=== PATIENT | male | born 1960 | race Caucasian/White ===

== ENCOUNTER 2017-07-29 12:09 | Inpatient (IN) | payer BC, OTHER ==
[~2017-07-29] VITALS: Ht 188 cm; Wt 79.4 kg
--- NOTE | ~2017-07-29 | EKG ---
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
--- NOTE | ~2017-07-29 | H ---
[facility] [place] [address] HISTORY AND PHYSICAL Name: ACE BLACK Room #: 364-P [facility] IN M.R.#: [id number] Admission: 07/29/17 Attend Phys: Pedro Luis Lopez MD, [facility] Discharge: 07/31/17 Date of : 64 Report #: [id number] THIS REPORT FOR: //name// CC: Pedro Luis Lopez DATE OF SERVICE: 07/29/2017 CHIEF COMPLAINT: Pneumonia. HISTORY OF PRESENT ILLNESS: The patient is a 56-year-old white male well known to me. He has metastatic germ cell tumor and has undergone radiation and chemotherapy for this, currently receiving immunotherapy in [place]. He has had pancytopenia with particularly low platelet count most recently 11 noted in the outpatient labs day before yesterday. He received platelet transfusion yesterday evening at [facility]. Platelet count before that transfusion was 11. Today, he has felt poorly with some chest congestion, malaise, light clamminess, went to the Emergency Department at [facility] and was found to have a right lower lobe pneumonia. He is admitted for IV antibiotic therapy and pulmonary toilet. Cultures are obtained. PAST MEDICAL AND SURGICAL HISTORY: Testicular cancer, unilateral orchiectomy, gout, mild sigmoid diverticulosis, hyperplastic polyp removed and colonoscopy by Dr. 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 MEDICATIONS: Allopurinol 300 mg 1 p.o. daily, midodrine 10 mg 1 p.o. t.i.d., Glidden 10/325 1 p.o. q. 4 hours p.r.n. pain, gabapentin, multivitamin 1 p.o. daily, temazepam 15 mg at bedtime p.r.n. insomnia, Xanax 1 mg 1 p.o. daily p.r.n. anxiety, Compazine 10 mg 1 p.o. q. 8 hours p.r.n. nausea, Zofran 8 mg 1 p.o. q. 8 hours p.r.n. nausea. ALLERGIES: CODEINE caused nausea and vomiting. FAMILY HISTORY: Both parents had their gallbladders out. 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 REVIEW OF SYSTEMS: CONSTITUTIONAL: Has felt poorly lately, weak and now with chest congestion and radiographically confirmed pneumonia. EYES: No visual changes. ENT: No problems with hearing, swallow, taste or smell. [facility] [address] [place] [address] HISTORY AND PHYSICAL Name: ACE BLACK Room #: 364-P DIS IN M.R.#: [id number] Admission: 07/29/17 Attend Phys: Pedro Luis Lopez MD, FAAF Discharge: 07/31/17 Date of : 64 Report #: [id number] CARDIOVASCULAR: No chest pain or palpitations. RESPIRATORY: Chest congestion with pneumonia. GASTROINTESTINAL: No abdominal pain. GENITOURINARY: No problems urinating. MUSCULOSKELETAL: Feels weak. NEUROLOGIC: No paresis, paralysis or paresthesias. PSYCHIATRIC: Frustrated some depression. DERMATOLOGIC: No disturbing lesions or rash. Remainder of system review is negative. OBJECTIVE: VITAL SIGNS: New set of vital signs earlier in the day, temperature is 37.1, pulse 125, respirations 18, blood pressure 85/53, 95% O2 saturation on room air. GENERAL: He is in no acute distress, appears fatigued, engaging in conversation. HEENT: Pupils equal, round, reactive to light and accommodation. Extraocular muscles intact. Pharynx unremarkable. NECK: Supple. COR: S1, S2. CHEST: Moves air fairly well. He has somewhat diminished in the right lower lobe. ABDOMEN: Soft, nontender. EXTREMITIES: Nonedematous. LABORATORY EVALUATION: CBC: White count is 2.3, hemoglobin 8.9, hematocrit 26.1, platelets 26,000. This is following a platelets transfusion yesterday. Serum chemistry: Sodium 135, potassium 4.5, chloride 97, CO2 of 30, BUN 30, creatinine 1.5. Chest x-ray done from Emergency Department shows a right lower lobe infiltrate and small right pleural effusion. ASSESSMENT: Right lower lobe pneumonia, metastatic germ cell tumor, hypotension, pancytopenia. PLAN: Admit to hospital, IV antibiotics, Rocephin, and Zithromax, pulmonary toilet, follow cultures. <ELECTRONICALLY SIGNED> By: Pedro Luis Lopez MD, JOHN, FACEP 08/04/17 1646 2216 [id number] Pedro Luis Lopez MD, JOHN, FACEP /nt
[~2017-07-29 12:09] MED LIST: ALLOPURINOL 10100 M1 PO; FISHOIL PO; HYDROCODON-ACE1 EAC8 PO; RESTORIL30 MG PO; VOLTAREN 50MG T50 MG PO
[2017-07-29 12:14] VITALS: BP 85/53
[2017-07-29] MEDS ORDERED: ALLOPURINOL 10100 M1 PO (12:54)
[2017-07-29 12:55] LABS: ANION GAP 8 mmol/L (7-16); BUN 30 mg/dL (7-18); CALCIUM 8.7 mg/dL (8.5-10.1); CHLORIDE 97 mmol/L (98-107); CO2 30 mmol/L (21-32); CREATININE 1.5 mg/dL (0.7-1.3); GLUCOSE 109 mg/dL (74-106); HEMATOCRIT 26.1 % (42.0-52.0); HEMOGLOBIN 8.9 gm/dL (14.0-18.0); MANUAL DIFF YES; MCH 31.1 pg (26.0-34.0); MCV 91.5 fL (80.0-100.0); POTASSIUM 4.5 mmol/L (3.5-5.1); RBC 2.85 mil/uL (4.50-6.00); RDW 22.5 % (10.5-14.5); SODIUM 135 mmol/L (136-145); WBC 2.3 thou/uL (4.0-11.0)
[2017-07-29] MEDS ORDERED: CENTRUM SILVER1 EAC4 PO (12:55)
[2017-07-29] MEDS ORDERED: IRON325 PO (12:55)
[2017-07-29] MEDS ORDERED: DEXPAK1.5 M1 PO (12:57)
[2017-07-29] MEDS ORDERED: VITAMIN D3400 UNIT PO (12:58)
[2017-07-29] MEDS ORDERED: NEURONTIN 300300 M1 PO (12:58)
[2017-07-29] MEDS ORDERED: COLACE100 MG PO (12:59)
[2017-07-29] MEDS ORDERED: OLANZAPINE2.5 MG PO (12:59)
[2017-07-29] MEDS ORDERED: MIDODRINE HCL 55 M1 PO (12:59)
[2017-07-29] MEDS ORDERED: PROTONIX40 M1 PO (13:00)
[2017-07-29] MEDS ORDERED: FENTANYL PATCH75 MCG TRANSDERM (13:00)
[2017-07-29] MEDS ORDERED: LIDODERM1 EACH TOP (13:01)
[2017-07-29 13:04] LABS: ALBUMIN 2.6 g/dL (3.4-5.0); ALKALINE PHOSPHATASE 781 U/L (46-116); SGOT 174 U/L (15-37); SGPT 113 U/L (30-65); TOTAL BILIRUBIN 1.2 mg/dL (<0.1-1.0); TOTAL PROTEIN 6.4 g/dL (6.4-8.2); TROPONIN-I < 0.04 ng/mL (<0.06)
[2017-07-29 13:33] LABS: URINE BILIRUBIN NEGATIVE (Negative); URINE BLOOD 3+ (Negative); URINE COLOR YELLOW; URINE GLUCOSE-RANDOM* NEGATIVE (Negative); URINE KETONES NEGATIVE (Negative); URINE LEUKOCYTES-REFLEX NEGATIVE (Negative); URINE PROTEIN (DIPSTICK) 2+ (Negative)
[2017-07-29 13:42] LABS: SQUAMOUS None Seen /LPF (0-3); URINE RBC 3-10 Few /HPF (0-2); URINE WBC-REFLEX 0-5 Rare /HPF (0-5)
[2017-07-29 13:43] LABS: CASTS None Seen /LPF (None Seen); CRYSTALS None Seen /LPF (None Seen)
[2017-07-29 14:03] LABS: ABSOLUTE NEUTROPHILS 1.6 thou/uL (1.4-8.2); PLATELET COUNT 26 thou/uL (150-400); TOTAL CELL COUNT 100
[2017-07-29 14:04] LABS: ANISOCYTOSIS 2+; POLYCHROMASIA 1+
[2017-07-29 14:55] VITALS: BP 92/58; BP 96/58
[2017-07-29 16:16] VITALS: BP 94/59
[2017-07-29 19:28] VITALS: BP 116/68
[2017-07-30] VITALS (9 sets, daily range): BP systolic 90–108; BP diastolic 45–74
[2017-07-30 06:26] LABS: HEMOGLOBIN 7.3 gm/dL (14.0-18.0)
[2017-07-30 06:28] LABS: MCH 30.6 pg (26.0-34.0); MCHC 33.1 g/dL (28.0-37.0); MCV 92.6 fL (80.0-100.0); RBC 2.38 mil/uL (4.50-6.00); RDW 22.1 % (10.5-14.5); WBC 2.1 thou/uL (4.0-11.0)
[2017-07-30 06:36] LABS: CALCIUM 8.2 mg/dL (8.5-10.1); CREATININE 1.7 mg/dL (0.7-1.3); MANUAL DIFF YES; PLATELET COUNT 15 thou/uL (150-400); POTASSIUM 4.5 mmol/L (3.5-5.1)
[2017-07-30 08:01] LABS: ABSOLUTE NEUTROPHILS 1.5 thou/uL (1.4-8.2); NUCLEATED RBCS 1 /100WBC; TOTAL CELL COUNT 100
[2017-07-30 08:02] LABS: MYELOCYTES 1 %
[2017-07-30 08:03] LABS: ANISOCYTOSIS 3+; POLYCHROMASIA OCCASIONAL
[2017-07-31 04:11] VITALS: BP 118/64
[2017-07-31 05:39] LABS: HEMOGLOBIN 6.7 gm/dL (14.0-18.0)
[2017-07-31 05:42] LABS: HEMATOCRIT 20.2 % (42.0-52.0); MCH 30.9 pg (26.0-34.0); MCHC 33.2 g/dL (28.0-37.0); MCV 92.8 fL (80.0-100.0); PLATELET COUNT 30 thou/uL (150-400); RBC 2.17 mil/uL (4.50-6.00); RDW 21.7 % (10.5-14.5)
[2017-07-31 05:48] LABS: MANUAL DIFF YES
[2017-07-31 05:49] LABS: WBC 1.2 thou/uL (4.0-11.0)
[2017-07-31 08:30] VITALS: BP 101/62
[2017-07-31 08:49] LABS: ABSOLUTE NEUTROPHILS 0.8 thou/uL (1.4-8.2); TOTAL CELL COUNT 50
[2017-07-31 08:50] LABS: ANISOCYTOSIS 2+
[2017-07-31 08:51] LABS: MACROCYTES 1+; MICROCYTES 1+; POLYCHROMASIA OCCASIONAL
[2017-07-31 15:17] VITALS: BP 101/62
[2017-07-31 15:45] VITALS: BP 101/62
== END 2017-07-31 15:54 | disposition home or self-care (01) | DRG 194 ==
LOC: ER 12:09 → EROBS 13:52 → 3W 15:08
PROVIDERS: Family Medicine; Physician Assistant
PROC: 30233R1 Transfusion of Nonautologous Platelets into Peripheral Vein, Percutaneous Approach (ICD-10-PCS; principal; 2017-07-30)
DX: J18.1 Lobar pneumonia, unspecified organism (principal); D61.818 Other pancytopenia; M10.9 Gout, unspecified; I95.9 Hypotension, unspecified; C62.90 Malignant neoplasm of unspecified testis, unspecified whether descended or undescended; Z88.6 Allergy status to analgesic agent
CPT/HCPCS: 10879; 91030

== ENCOUNTER 2017-08-03 06:27 | Inpatient (IN) | payer BC, OTHER ==
[~2017-08-03] VITALS: Ht 193 cm; Wt 93.1 kg
[2017-08-03] VITALS (60 sets, daily range): BP systolic 78–145; BP diastolic 54–100
--- NOTE | ~2017-08-03 | HC ---
[facility] [place] [address] [place] [address] CONSULTATION Name: ACE BLACK Room #: 241-P ADM IN M.R.#: [id number] Admission: 08/03/17 Attend Phys: Yuri Schultz DO Discharge: Date of : 64 Report #: [id number] THIS REPORT FOR: //name// CC: Yuri Lopez MD PRIMARY PHYSICIAN: Pedro Luis Lopez MD REFERRAL PHYSICIAN: Yuri Schultz DO REASON FOR REFERRAL: Septic shock. HISTORY OF PRESENT ILLNESS: The patient is a 56-year-old white male who presents to the emergency room with altered mental status and dyspnea. He was felt to be septic. The patient was admitted. A pulmonary and critical care consultation was requested. I had a chance to talk with the patient's who gave a fairly good history. The patient is unable to give much history due to encephalopathy. According to the , the patient was diagnosed with metastatic germ cell carcinoma in June 2016. The patient has been undergoing chemotherapy. He is followed at the [facility]. His chemotherapy has recently been on hold due to pancytopenia. According to the , the cancer has not responded well to chemotherapy. He was just hospitalized on July 29, for pneumonia. He was released few days ago, so that the patient can be home for [place]. According to the once at home, the patient became much more weaker, he was more confused earlier yesterday. For that reason, he was brought to the emergency room. Currently, he is semi-somnolent, arousable, appears to be in moderate distress. He is hypotensive and oliguric. PAST MEDICAL HISTORY: Notable for metastatic germ cell tumor, undergoing radiation therapy in the past along with concurrent chemotherapy, he has been followed by the [facility] in [place], [place]. He has had problems with pancytopenia, history of sigmoid diverticulosis, hyperplastic polyps. Records also showed the patient was initially diagnosed with testicular cancer 20 years ago, undergoing unilateral orchiectomy. Past CT chest showed supraclavicular adenopathy, status post cervical biopsy, which was felt to be nonmalignant, extensive retroperitoneal adenopathy presumably felt to be due to metastatic germ cell tumor. ALLERGIES: To CODEINE, which causes nausea and vomiting. [facility] [address] [place] [address] CONSULTATION Name: ACE BLACK Room #: 241-P ADM IN M.R.#: [id number] Admission: 08/03/17 Attend Phys: Yuri Schultz DO Discharge: Date of : 64 Report #: [id number] CURRENT MEDICATIONS: Lists are reviewed in the MAR. FAMILY HISTORY: Noncontributory. SOCIAL HISTORY: He is , disabled. He used to work in asphalt plant. He is a nonsmoker. REVIEW OF SYSTEMS: Deferred as the patient is encephalopathic. PHYSICAL EXAMINATION: VITAL SIGNS: Temperature is 99.9 degrees Fahrenheit, pulse is 96, respiratory rate is 20, blood pressure 120/79 mmHg, and saturation 100%. HEENT: Normocephalic, atraumatic. NECK: Supple without any lymphadenopathy or thyromegaly. CHEST: Breath sounds are decreased bilaterally due to poor effort. Decreased in the right base. No wheezes noted. CARDIOVASCULAR: Normal S1, S2. There are no murmurs or gallops. Pulses are decreased to 1/4+ bilaterally. ABDOMEN: Soft and nontender. No organomegaly or masses felt. GENITOURINARY: Deferred. RECTAL: Deferred. EXTREMITIES: There is no edema, cyanosis, or clubbing. NEUROLOGIC: He is semi somnolent and arousable. LABORATORY DATA: Chest x-ray shows right lower lobe infiltrate/atelectasis, small pleural effusion, which is grossly unchanged from prior chest x-ray on 07/29/2017. CT chest from June 2016, was unremarkable. Procalcitonin is 5.36. Sodium 132, potassium 5.2, chloride 98, CO2 is 24, BUN is 23, and creatinine is 1.9. Liver function enzymes are elevated. Albumin 2.3. White count is 1000, hemoglobin 7.5, and platelets 16,000, it was as low as 12,000. Arterial blood gas revealed pH 7.45, pCO2 of 30, and pO2 78 on 3 liters of O2. IMPRESSION: 1. Febrile illness, hypotension in this 56-year-old white male. Chest x-ray shows probable right lower lobe infiltrates. He is pancytopenic. Suspect pneumonia with severe sepsis with multiorgan system dysfunction. 2. Severe sepsis, now with hypotension with multisystem organ failure including renal, respiratory, and neurologic. 3. Renal insufficiency, presumed acute. He was oliguric on admission. 4. Elevated liver enzymes. 5. Pancytopenia with platelets of 16,000, WBC of 1000, hemoglobin of 7.5. 6. Acute hypoxic respiratory failure due to above. 7. Toxic and metabolic encephalopathy. 8. Metastatic germ cell carcinoma, metastases to the bone, liver along with [facility] [address] [place] [address] CONSULTATION Name: ACE BLACK Room #: 241-P ADM IN M.R.#: [id number] Admission: 08/03/17 Attend Phys: Yuri Schultz DO Discharge: Date of : 64 Report #: [id number] diffuse adenopathy with testicular cancer diagnosed about 20 years ago, now with recurrence with an apparent diffuse adenopathy. He has received radiation therapy in the past with ongoing chemotherapy starting in June 2016. Chemotherapy has recently been on hold due to pancytopenia. 9. Solitary kidney status post right nephrectomy in the past. 10. Severe protein-calorie malnutrition. MEDICAL DIRECTIVE: According to the , the patient desires a chemical code, but does not wish CPR or intubation. I have discussed with her that overall condition is very, very guarded. RECOMMENDATION: We will initiate sepsis protocol, vasopressor to keep systolic greater than 90 and mean arterial pressure greater than 65. We will monitor urine output closely to achieve at least 20 mL an hour. Broad spectrum antibiotic per infectious disease. We will consult hematology to assist with pancytopenia, particularly profound thrombocytopenia and bleeding concerns. Once stable, we will proceed with CT chest to assess the right lower lobe. Concerns more atelectasis, perhaps related to his adenopathy along with his pneumonia. I have discussed the findings with the patient's apparent , though earlier it was noted the patient was single. I did talk to her on the phone. She states that she was the . I did discuss that his condition is very grave and critical. She voices understanding. Thank you for this consultation. <ELECTRONICALLY SIGNED> By: Sami Obregon MD 08/04/17 1216 1352 1619 Sami Obregon MD /nt
--- NOTE | ~2017-08-03 | EKG ---
[address] [place] [address] ELECTROCARDIOGRAM REPORT Name: ACE BLACK Room #: 170-8 ADM IN M.R.#: [id number] Admission: 08/03/17 Attend Phys: Nash Bedoya MD Discharge: Date of : 64 Report #: [id number] THIS REPORT FOR: //name// [facility] ED Test Date: 2017-08-03 Test Time: 07:08:42 Pat Name: ACE BLACK Department: Room: 170 Gender: M Hematology Technician: DMITRIY : 1960 Requested By: Merlin Conklin Order Number: [id number] MD: Johny Silva Measurements Intervals [place] Rate: 148 P: 81 WA: 158 QRS: 103 QRSD: 82 T: 61 QT: 339 QTc: 533 Interpretive Statements Sinus tachycardia Probable left atrial enlargement Low voltage with right axis deviation Poor R-wave progression Compared to ECG 07/29/2017 13:11:12 Right-axis deviation now present Prolonged QT interval now present Sinus rhythm no longer present Electronically Signed On 08-03-2017 9:27:05 PUBLIC HEALTH ENGINEER by Johny Silva [email or web address] <ELECTRONICALLY SIGNED> By: Johny Silva MD 08/03/17926 7 7 Johny Silva MD /RAMU
--- NOTE | ~2017-08-03 | H ---
[facility] [place] [address] HISTORY AND PHYSICAL Name: ACE BLACK Room #: 236-P [facility] IN M.R.#: [id number] Admission: 08/03/17 Attend Phys: Yuri Schultz DO Discharge: Date of : 64 Report #: [id number] THIS REPORT FOR: //name// CC: Pedro Luis Lopez MD DATE OF SERVICE: 08/03/2017 HISTORY OF PRESENT ILLNESS: This 56-year-old white male was admitted in septic shock. The patient was discharged from here on 07/31/2017 in stable condition after being admitted for community-acquired pneumonia. The patient was ambulatory and was insistent he wanted to be home for [place] since he was in the hospital last year at this time. Once he returned home, he became weaker and this morning became confused and weak and restless and incontinent of urine and could not stand up because of weakness. He was brought to the Emergency Room and found to have pancytopenia, high fever, pneumonia on chest x-ray and acute kidney injury. His history is given by his ( since April 2017) who states that the patient has had germ cell cancer for many years, most recently with metastatic spread to bones and neck and intra-abdominal lymph nodes. He was treated here in [place] with resection of intraabdominal nodes and the left neck node and received radiation therapy at [facility] for metastatic bone disease. Apparently, there was a complication to the right kidney and it had to be removed. Medical oncologist at [facility] told her that he felt no further treatment would help. He sought opinion from the Cancer Center in [place], [place], where he has been treated for the last few months, initially with radiation therapy to this large mass in the left neck and then radiation therapy to bones and immunotherapy. Immunotherapy has been on hold because of pancytopenia. Recent CAT scan showed metastasis to his liver as well. PAST MEDICAL HISTORY: The patient has had multiple admissions in the past year at [facility] for orthostatic hypotension, pharyngitis and generalized debility. 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 He has an implantable pain pump placed in [place] with fentanyl. ALLERGIES: He is allergic to MORPHINE. MEDICATIONS ON ADMISSION: 1. Fentanyl patch 75 mcg every 72 hours. 2. Cefuroxime 250 mg b.i.d. and Zithromax and Z-MICHELE begun on discharge here 3 days ago[address] [address] HISTORY AND PHYSICAL Name: ACE BLACK Room #: 236-P [facility] IN M.R.#: [id number] Admission: 08/03/17 Attend Phys: Yuri Schultz DO Discharge: Date of : 64 Report #: [id number] 3. Midodrine 10 mg t.i.d. 4. Ferrous sulfate 325 mg daily. 5. Gabapentin 300 mg t.i.d. 6. Olanzapine 2.5 mg at bedtime. 7. Temazepam 30 mg p.r.n. sleep. 8. Docusate 100 mg t.i.d. 9. Pantoprazole 40 mg daily. 10. Vitamin D 400 units daily. 11. Multivitamin 1 daily. 12. Allopurinol 300 mg daily. REVIEW OF SYSTEMS: The patient's states that the patient has been ambulatory until this recent illness. He developed pneumonia 3 days before admission here on 07/27/2017. He has not been able to produce sputum. There has been no nausea, vomiting or diarrhea. PHYSICAL EXAMINATION: GENERAL: A but responsive white male, bearded and disheveled. VITAL SIGNS: Temperature 38.1, blood pressure 108/60, pulse 90, respirations 22. HEAD: No rash. EARS, NOSE AND THROAT: Mucosa is very dry. EYES: No icterus. NECK: Supple as he cannot lift his head above the bed to command. LUNGS: Scattered upper airway rhonchi. Cough is very bronchitic. HEART: Regular rhythm without significant murmur. ABDOMEN: Soft, nontender, without masses or guarding. EXTREMITIES: 1-2+ pretibial edema. No definite cellulitis. NEUROLOGIC: He knows he is in [place], but just asleep and is difficult to respond and keep awake. Chest x-ray shows right perihilar and basilar opacities, likely representing pneumonia. White count is 1000 with differential pending. Hemoglobin is 7.5, MCV 92, platelets 16,000. The patient had received an outpatient platelet transfusion last week. Sodium is 132, potassium 5.2, CO2 24, BUN 22, creatinine up to 1.9, glucose 105, calcium 8.3, alkaline phosphatase 749. BNP 747, albumin 2.3. Procalcitonin 5.36. Creatinine on discharge here 3 days ago was 1.7. IMPRESSION: 1. Septic shock, probably for pneumonia. 2. Pancytopenia. 3. Germ cell cancer metastatic to bone, liver and lymph nodes. 4. Immunosuppression. 5. Acute kidney injury, solitary kidney status post right nephrectomy. PLAN: The patient is critically ill and his who says she is also power of [address] [address] HISTORY AND PHYSICAL Name: ACE BLACK Room #: 236-P ADM IN M.R.#: [id number] Admission: 08/03/17 Attend Phys: Yuri Schultz DO Discharge: Date of : 64 Report #: [id number] trust and estates attorney says the patient has reported just last week that he does not want his ribs broken or to be intubated, so we will make him a chemical code only. We will use aggressive fluid resuscitation and pressors, antibiotics, steroids, infectious disease and critical care consult initially, if survives critical care, will need oncology and possible renal consultations. Prognosis is very guarded. <ELECTRONICALLY SIGNED> By: Yuri Schultz DO 08/13/17 1449 1109 1238 Yuri Schultz DO /nt
--- NOTE | ~2017-08-03 | S ---
[facility] [address] [place] [address] SURGICAL PATH RPT PROCEDURE Name: ACE BLACK Room #: 241-P ADM IN M.R.#: [id number] Admission: 08/03/17 Date of : 64 Discharge: Report #: [id number] Path Case #: [id number] PATHOLOGY REPORT COLLECTION DATE: 08/04/2017 RECEIVED DATE: 08/04/2017 SUBMITTING PHYS: Dr. Yuri Schultz OTHER PHYS: Dr. Pedro Luis Lopez SPECIMEN(S) RECEIVED: A.Peripheral smear * * * * * * * * * * * * FINAL DIAGNOSIS: Peripheral blood smear: - Pancytopenia including severe normocytic anemia, severe leukopenia and severe thrombocytopenia (see comment). (CLW:cami; 08/04/2017) COMMENT: Overall, the peripheral blood has pancytopenia including severe normocytic anemia, severe leukopenia and severe thrombocytopenia. The etiology of the findings is unclear based entirely on slide review. No immature or atypical cells are identified on scanning. Potential causes of pancytopenia include infections, drug reactions, and primary bone marrow disorders. Correlation with clinical history and additional laboratory data is recommended. (CLW:cami; 08/04/2017) PATHOLOGIST: Ewa Mendoza M.D. REPORT ELECTRONICALLY SIGNED BY: Ewa Mendoza M.D. DATE/TIME: 08/04/2017 20:30 * * * * * * * * * * * * MICROSCOPIC DESCRIPTION: CBC Data (08/04/17): WBC 800/uL, RBC 2.33, hemoglobin 7.3 g/dL, hematocrit 21.6%, MCV 93.0 fL, MCH 31.4 pg, MCHC 33.8 g/dL, and RDW 20.6%. Platelet count 22,000/uL. Manual white blood cell differential: segs 77%, bands 3%, lymphs 12%, and monos 8%. Peripheral Blood Smear: Cytomorphological examination of the Sapp's stained peripheral blood smear confirms the provided data. Red blood cells show severe normocytic anemia with moderate anisocytosis. No significant poikilocytosis is identified. No schistocytes or microspherocytes are seen. White blood cells are markedly decreased in number. They are predominantly segmented neutrophils with reactive changes. Occasional hyposegmented and hypergranular neuotrophils are noted. [address] [address] SURGICAL PATH RPT PROCEDURE Name: ACE BLACK Room #: 241-P ADM IN M.R.#: [id number] Admission: 08/03/17 Date of : 64 Discharge: Report #: [id number] Path Case #: [id number] There is no significant left shift and no blasts are seen on scanning. Lymphocytes are predominantly small, round, and mature appearing with condensed chromatin and scant cytoplasm with admixed large granular lymphocytes. On scanning, no markedly atypical lymphoid cells are seen. Monocytes are mature. Platelets are markedly decreased in number and mainly normal in morphology with rare larger platelets noted. (CLW:cami; 08/04/2017) GROSS PATHOLOGY: Received are four peripheral blood smears (2 Sapp's stained and 2 unstained) all labeled, Ace Black CLINICAL HISTORY: 56-year-old man with pancytopenia. Morphologic review of the peripheral blood smear is requested by the patient's physician. INITIAL CPT CODE(S): A; [place] Professional services performed by [facility] at [facility] [address], [place] [address] Technical services performed by [facility] at [address] [place] [address], [address], [place] [address]. [facility] [address] [place] [address] PHONE: [phone] DIRECTOR: David Mitchell M.D. * * * END OF REPORT * * *
--- NOTE | ~2017-08-03 | HC ---
[facility] [place] [address] CONSULTATION Name: ACE BLACK Room #: 236-P [facility] IN M.R.#: [id number] Admission: 08/03/17 Attend Phys: Yuri Schultz DO Discharge: 08/14/17 Date of : 64 Report #: [id number] THIS REPORT FOR: //name// CC: Yuri Lopez DATE OF SERVICE: 08/03/2017 CONSULTATION: Infectious diseases. HISTORY OF PRESENT ILLNESS: Kyle Black is a 56-year-old white male who was hospitalized from July 27 to July 31, for community-acquired pneumonia in the setting of advanced cancer with immunosuppression. The patient went home on July 31, in order to be home for [place]. Unfortunately on , the patient became febrile with more confusion and weakness, he returned to the ER with a temperature of 39.4 and was admitted. Infectious disease consultation was requested. 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 He has had extensive debulking surgeries for malignant lymphadenopathy, radiation therapy, and is now on some kind of immunotherapy. He has been very debilitated with advanced disease. Other past history includes cancer of the testicles and gout. PAST SURGICAL HISTORY: Includes the lymph lymphadenectomy as well as implantation of a pain pump. FAMILY HISTORY: Noncontributory. SOCIAL HISTORY: The patient is , family is very supportive, no history of tobacco, alcohol, or drugs regarding the current illness. REVIEW OF SYSTEMS: The patient is very weak. He does answer some questions. He denies any focal symptoms. He was rather somnolent and would say a few words and then go back to sleep. I cannot appreciate any specific complaints regarding head, neck, chest, GI or symptoms. According to the family, he was confused and too weak to standard when he came to the hospital. PHYSICAL EXAMINATION: GENERAL: The patient appears to be very ill middle-aged gentleman, appearing older than his stated age, but comfortable, not in any distress. VITAL SIGNS: Show temperature measured in the ER of 39.4. The patient was afebrile at the time of my examination. SKIN: Very sallow and gerardo in color, but no rash, lesion, or exanthem. ENT: Shows temporal wasting. [facility] [address] [place] [address] CONSULTATION Name: ACE BLACK Room #: 236-P [facility] IN M.R.#: [id number] Admission: 08/03/17 Attend Phys: Yuri Schultz, Discharge: 08/14/17 Date of : 64 Report #: [id number] NEUROLOGIC: Mentally, the patient was arousable, but really not conversant. MOUTH: He would not open his mouth for me to examine his mucous membranes. NECK: Appeared to be supple. HEART: Sounds normal. CHEST: Sounds were somewhat coarse and diminished. ABDOMEN: Belly was scaphoid, soft, not tender. Bowel sounds present. EXTREMITIES: Unremarkable. LABORATORY DATA: The white count was 1.0, it was 2.3 when he left the hospital, hemoglobin has gone from 8.9 to 7.5 with hematocrit 22%, platelets have gone from 30,000 to 16,000. I believe the 30,000 was after a platelet transfusion. Electrolytes and BUN were normal, BUN 20, creatinine 1.6, glucose 132. The liver function tests showed normal transaminases, but the alkaline phosphatase continues to be elevated at 749. The chest x-ray shows right hilar infiltrate and right lower lobe infiltrate and effusions. In summary, the patient with advanced germ cell cancer with severe immunosuppression from his disease and treatment, who presents with fever and infiltrates after recent treatment for pneumonia, culture negative. I would recommend we restart broad-spectrum antibiotic therapy for routine bacterial pathogens as well as atypical organisms. We will use vancomycin and Zosyn plus Levaquin. I would like to do a nasopharyngeal swab for respiratory viruses and influenza as well. The patient does have some fluid in his right lower lobe. It may be worthwhile after platelet transfusions to normalize the platelets to consider pleurocentesis both for culture and also to help improve his breathing. At this time, the patient appears to have very advanced cancer and has a very limited prognosis. There may be a superimposed infection further exacerbating his condition. I appreciate the opportunity of infectious disease input in the care of this very ill gentleman. Dr. Shannon will return on Thursday for further followup. <ELECTRONICALLY SIGNED> By: Sam Arcos MD 08/17/17 0026 1000 1118 Sam Arcos MD /nt
--- NOTE | ~2017-08-03 | DEA ---
[facility] [place] [address] SUMMARY Name: ACE BLACK Room #: 236-P [facility] IN M.R.#: [id number] Admission: 08/03/17 Attend Phys: Yuri Schultz DO Discharge: 08/14/17 Date of : 64 Report #: [id number] THIS REPORT FOR: //name// CC: Yuri Cortéslas John DATE OF SERVICE: 08/14/2017 REASON FOR HOSPITALIZATION: Pneumonia; pancytopenia; acute kidney injury. 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 He has been going through multiple surgeries, radiation therapy, chemotherapy and was most recently receiving immunotherapy at a Cancer Center in [place] when he became ill with pneumonia. He was recently hospitalized and treated with antibiotics for a pneumonia/pancytopenic picture. He did improve, but left the hospital by his own volition in hopes to resume immunotherapy in [place] and also have [place] holiday with his family. His conditions worsened though several days after that discharge and he returned to the Emergency Room quite ill on 2016. He was noted to be in septic shock, pancytopenic. His metastatic germ cell cancer was now involving bone, liver and lymph nodes. White count was 1000, hemoglobin was 7.5, platelets 16,000. BUN 22, creatinine 1.9. He was treated with multiple antibiotics, aggressive pulmonary toilet. Consults to Hem/Onc, Pulmonology, Infectious Disease. Despite aggressive medical care and multiple modalities, his condition dwindled. He did have fairly good results including his chest x-ray to move from pneumonia to pneumonitis; however, his condition overall was dismal. His prognosis was dismal. Family opted at that time for compassion and end-of-life care and this was instituted. He on 08/14/2017. 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 OPERATIONS AND PROCEDURES: A platelet transfusion, red cell transfusion, central line, echocardiogram, percutaneous drainage of right pleural cavity of [facility] [address] [place] [address] SUMMARY Name: ACE BLACK Room #: 236-P [facility] IN M.R.#: [id number] Admission: 08/03/17 Attend Phys: Yuri Schultz DO Discharge: 08/14/17 Date of : 64 Report #: [id number]. Appropriate arrangements were made for disposition of the remains. Condolences to the family. <ELECTRONICALLY SIGNED> By: Pedro Luis Lopez MD, JOHN, FACEP 10/21/17 1001 0737 0916 Pedro Luis Lopez MD, JOHN, FACEP /nt
--- NOTE | ~2017-08-03 | EKG ---
[address] [place] [address] ELECTROCARDIOGRAM REPORT Name: ACE BLACK Room #: 363-P ADM IN M.R.#: [id number] Admission: 08/03/17 Attend Phys: Yuri Schultz DO Discharge: Date of : 64 Report #: [id number] THIS REPORT FOR: //name// [facility] Test Date: 2017-08-08 Test Time: 00:40:47 Pat Name: ACE BLACK Department: Room: 363 P Gender: M [place] Operator: miguel mooney : 1960 Requested By: Pedro Luis Lopez Order Number: [id number] MD: Measurements Intervals [place] Rate: 152 P: 56 RI: 129 QRS: 91 QRSD: 76 T: 76 QT: 349 QTc: 555 Interpretive Statements Sinus tachycardia Low voltage, extremity leads Prolonged QT interval Compared to ECG 08/03/2017 07:08:42 Prolonged QT interval now present Right-axis deviation no longer present Poor R-wave progression no longer present [email or web address] By: 0040 0040 Epiphany MD Sanchez /EPI
--- NOTE | ~2017-08-03 | EKG ---
[address] [place] [address] ELECTROCARDIOGRAM REPORT Name: ACE BLACK Room #: 363-P ADM IN M.R.#: [id number] Admission: 08/03/17 Attend Phys: Yuri Schultz DO Discharge: Date of : 64 Report #: [id number] THIS REPORT FOR: //name// [facility] Test Date: 2017-08-08 Test Time: 08:14:30 Pat Name: ACE BLACK Department: Room: 363 P Gender: M Erp Business Analyst: EMILY : 1960 Requested By: Pedro Luis Lopez Order Number: [id number] MD: Ren Mosqueda Measurements Intervals [place] Rate: 118 P: 48 SC: 126 QRS: 76 QRSD: 63 T: 117 QT: 444 QTc: 623 Interpretive Statements Sinus tachycardia Low voltage, extremity leads Nonspecific T abnormalities, lateral leads Prolonged QT interval Compared to ECG 08/03/2017 07:08:42 No significant change was foun Electronically Signed On 08-09-2017 14:13:54 SALES REPRESENTATIVE GRAPHIC ART by Ren Mosqueda [email or web address] <ELECTRONICALLY SIGNED> By: Ren Mosqueda MD, [facility] 08/09/17 1413 3 Ren Mosqueda MD, [facility] /EPI
--- NOTE | ~2017-08-03 | HC ---
[facility] [place] [address] CONSULTATION Name: ACE BLACK Room #: 236-P [facility] IN M.R.#: [id number] Admission: 08/03/17 Attend Phys: Yuri Schultz DO Discharge: Date of : 64 Report #: [id number] THIS REPORT FOR: //name// CC: Yuri Lopez DATE OF SERVICE: 08/03/2017 REQUESTING PHYSICIAN: Dr. Obregon. HISTORY OF PRESENT ILLNESS: The patient is a 56-year-old male who presented to [facility] 08/03. He presented with acute respiratory failure. Unfortunately, has been found to have bilateral pneumonia and has had subsequently worsening bilateral infiltrates. He has had a history of known germ cell metastatic cancer initially diagnosed 20 years ago with recurrence in June 2016 with metastasis to bone, liver, and diffuse adenopathy. The patient previously had been receiving chemotherapy; however, again the patient has had significant worsening of his overall condition. The patient at this current point in time was not able to answer significant questions for me. I did ask him about pain, shortness of breath, his cough which has been significant. In addition, I asked him about constipation, which has been a problem in the past. The patient's spouse and also patient's qzvpru-bu-xpy were present at today's interview. I did discuss the case with them today. PAST MEDICAL HISTORY: Significant for pancytopenia. Additionally, germ cell tumor with metastasis to multiple sites. He has had multiple admissions and [place] for orthostatic hypotension is currently on midodrine for that. PAST SURGICAL HISTORY: He in the past had unilateral orchiectomy for testicular cancer, gout as well as sigmoid diverticulosis. He has had debulking procedures of lymphatic tumor spread. He has also had inferior vena cava stent placed and an implantable pain pump as well. ALLERGIES: MORPHINE. MEDICATIONS: Previously on admission, fentanyl 75 mcg, midodrine, ferrous sulfate, gabapentin, Zyprexa, temazepam, Colace, Protonix, vitamin D, multivitamin, allopurinol. SOCIAL HISTORY: As above spouse and [id number]-ewf were present in today's interview. REVIEW OF SYSTEMS: General: Unable to obtain at this time secondary to medical condition. PHYSICAL EXAMINATION: [facility] [address] [place] [address] CONSULTATION Name: ACE BLACK Room #: 236-P [facility] IN .R.#: [id number] Admission: 08/03/17 Attend Phys: Yuri Schultz, Discharge: Date of : 64 Report #: [id number] VITAL SIGNS: Today's visit include temperature 37.3, pulse 94, respirations 18, blood pressure 111/78, 94% on nasal cannula. GENERAL: The patient is not alert. Poor attention level overall. He appears to be in mild respiratory distress at this current time. CARDIOVASCULAR: Currently regular rate and rhythm without murmur. LUNGS: Diffuse rhonchi throughout bilaterally and diffuse coarse rales. ABDOMEN: Appears to have diffuse tenderness to palpation. Diminished bowel sounds, but they are present in all 4 quadrants. EXTREMITIES: Appears to be generally weak. Does have generalized cachexia. LABORATORY DATA: Include potassium of 2.4. Additionally, he had platelet 36 today, hemoglobin 7.6, and white blood cells 3.1. ASSESSMENT AND PLAN: 1. Acute hypoxic respiratory failure. Again, management per pulmonary team, though he has had worsening of pulmonary infiltrates. He has severe protein-calorie malnutrition and diffuse germ cell tumor metastasis. Concern at this time for overall prognosis, which I have discussed with significant other and at this time has been determined to be poor. The patient has no capacity level for decision making at this point in time, the patient's family desires him to have hospice care at this time, at the very minimum palliative care in the hospital setting. If he is stable, they would desire hospice house placement. I have discussed going to the hospice house locally, which they are amenable to at this current point in time. I have discussed additionally that the patient is DNR/DNI they will continue with that. apparently, he is a chemical code only at this time. I had discussed medications that would be stopped most likely in the event of discharge, though we can continue several of his medications, which I will discuss further with the family in the morning if the patient continues to be stable. I believe the patient will benefit from transfer to a hospice dedicated facility if that is the case. Spent 65min in discussion of advanced care planning in voluntary discussion with family above 2. Delirium. This appears to be severe related to underlying condition affecting his decisional capacity at this point in time. 3. Bilateral pneumonia as per Pulmonology above. 4. Diffuse metastasized germ cell tumor. I have appreciated Oncology notes with regards to this poor prognosis overall family is understanding of this and were able to express their understanding of his current condition. 5. Pancytopenia. Management per primary team. I will continue to follow with this patient. We will follow up again in the morning. I agree with his current pain management and the fentanyl drip. I do believe this is significantly helping with his shortness of breath and I do believe that they will continue this at dedicated hospice facility. I did discuss limiting benzodiazepines for his attention level only to when anxiety is present. Family is amenable to that. I discussed other medications that might be used for comfort at this time. Family is also amenable to these. [address] [place] [address] CONSULTATION Name: ACE BLACK Room #: 236-P ADM IN M.R.#: [id number] Admission: 08/03/17 Attend Phys: Yuri Schultz DO Discharge: Date of : 64 Report #: [id number] Thank you very much for the consultation. <ELECTRONICALLY SIGNED> By: Abdi Araya DO 08/13/17 1226 2048 0027 Abdi Araya DO /nt
--- NOTE | ~2017-08-03 | CNG ---
[facility] [place] [address] CYTO-NONGYN REPORT PROCEDURE Name: ACE BLACK Room #: 363-P ADM IN M.R.#: [id number] Admission: 08/03/17 Date of : 64 Discharge: Report #: [id number] Path Case #: [id number] CYTOPATHOLOGY REPORT COLLECTION DATE: 08/05/2017 RECEIVED DATE: 08/06/2017 SUBMITTING PHYS: Dr. Sami Obregon OTHER PHYS: Dr. Pedro Luis Schultz CLINICAL HISTORY: Sepsis, Pneumonia, Septic shock, Hypoxia, AMS, Pancytopenia; See also [id number] SPECIMEN(S) RECEIVED: A.Pleural fluid * * * * * * * * * * * * FINAL DIAGNOSIS: A. Pleural fluid: - No malignant cells identified. Mesothelial cells and a few lymphocytes identified. PATHOLOGIST: Michelle Hernandez M.D. REPORT ELECTRONICALLY SIGNED BY: Michelle Hernandez M.D. DATE/TIME: 08/07/2017 13:50 * * * * * * * * * * * * GROSS PATHOLOGY: A. Pleural fluid: The specimen is submitted unfixed, labeled "Ace Black". Received by the Cytology Department is 15 mL of cloudy red fluid. One ThinPrep slide and a formalin fixed cell block were prepared. ( 08.06.2017) CYTOPATHOLOGIST(S): RAYNA Aldridge([facility]) INITIAL CPT CODE(S): A; 26867, 20093 Professional services performed by [facility] at [facility] [address], [place] [address] Technical services performed by [facility] at [address] [place] [address]., [address], [place] [address]. [facility] [address] [place] [address], [address] [facility] [address] [place] [address] CYTO-NONGYN REPORT PROCEDURE Name: ACE BLACK Room #: 363-P ADM IN M.R.#: [id number] Admission: 08/03/17 Date of : 64 Discharge: Report #: [id number] Path Case #: [id number] [place] [address] PHONE: [phone] DIRECTOR: David Mitchell M.D. * * * END OF REPORT * * *
--- NOTE | ~2017-08-03 | EKG ---
[address] [place] [address] ELECTROCARDIOGRAM REPORT Name: ACE BLACK Room #: 363-P ADM IN M.R.#: [id number] Admission: 08/03/17 Attend Phys: Yuri Schultz DO Discharge: Date of : 64 Report #: [id number] THIS REPORT FOR: //name// [facility] Test Date: 2017-08-08 Test Time: 00:40:47 Pat Name: ACE BLACK Department: Room: 363 P Gender: M Corporate Tax Manager: miguel mooney : 1960 Requested By: Pedro Luis Lopez Order Number: [id number] MD: Ren Mosqueda Measurements Intervals [place] Rate: 152 P: 56 [place]: 129 QRS: 91 QRSD: 76 T: 76 QT: 349 QTc: 555 Interpretive Statements Sinus tachycardia Low voltage, extremity leads Prolonged QT interval Compared to ECG 08/03/2017 07:08:42 No significant change was found Electronically Signed On 08-09-2017 14:08:52 [employer] AUTO BODY REPAIRER by Ren Mosqueda [email or web address] <ELECTRONICALLY SIGNED> By: Ren Mosqueda MD, [facility] 08/09/17 1408 D: 1239 Ren Mosqueda MD, FACC /EPI
[~2017-08-03 06:27] MED LIST changes: +CENTRUM SILVER1 EAC4 PO; +COLACE100 MG PO; +DEXPAK1.5 M1 PO; +FENTANYL PATCH75 MCG TRANSDERM; +IRON325 PO; +LIDODERM1 EACH TOP; +MIDODRINE HCL 55 M1 PO; +NEURONTIN 300300 M1 PO; +OLANZAPINE2.5 MG PO; +PROTONIX40 M1 PO; +VITAMIN D3400 UNIT PO
[2017-08-03 06:37] LABS: BE(vivo) -2.2 mmol/L (-2 to +3); HCO3 21.2 mmol/L (22.0-26.0); PCO2 30.9 mmHg (35.0-45.0); PO2 78.4 mmHg (80.0-100.0); pH 7.454 (7.360-7.450); sO2 96.3 % (92.0-98.0)
[2017-08-03 07:02] LABS: HEMOGLOBIN 7.5 gm/dL (14.0-18.0); RDW 21.4 % (10.5-14.5)
[2017-08-03 07:03] LABS: HEMATOCRIT 22.3 % (42.0-52.0); MCH 31.3 pg (26.0-34.0); MCHC 33.8 g/dL (28.0-37.0); MCV 92.8 fL (80.0-100.0); RBC 2.41 mil/uL (4.50-6.00)
[2017-08-03 07:04] LABS: URINE BILIRUBIN NEGATIVE (Negative); URINE BLOOD 2+ (Negative); URINE CLARITY CLOUDY; URINE COLOR YELLOW; URINE GLUCOSE-RANDOM* NEGATIVE (Negative); URINE KETONES NEGATIVE (Negative); URINE LEUKOCYTES-REFLEX NEGATIVE (Negative); URINE NITRITE-REFLEX NEGATIVE (Negative); URINE PROTEIN (DIPSTICK) 1+ (Negative); URINE SPECIFIC GRAVITY 1.025 (1.005-1.035); URINE UROBILINOGEN 0.2 E.U./dl (0.2-1.0)
[2017-08-03] MEDS ORDERED: CEFUROXIME250 MG PO (07:04)
[2017-08-03] MEDS ORDERED: ZITHROMAX250 MG PO (07:05)
[2017-08-03 07:11] LABS: CALCIUM 8.3 mg/dL (8.5-10.1); CREATININE 1.9 mg/dL (0.7-1.3); POTASSIUM 5.2 mmol/L (3.5-5.1)
[2017-08-03 07:12] LABS: AMORPHOUS URATES Many /LPF (None Seen); BACTERIA-REFLEX 1-9 Few /HPF (None Seen); CASTS None Seen /LPF (None Seen); SQUAMOUS None Seen /LPF (0-3); URINE RBC None Seen /HPF (0-2); URINE WBC-REFLEX None Seen /HPF (0-5)
[2017-08-03 07:20] LABS: ALBUMIN 2.3 g/dL (3.4-5.0); TOTAL BILIRUBIN 0.9 mg/dL (<0.1-1.0); TOTAL PROTEIN 5.4 g/dL (6.4-8.2); TROPONIN-I 0.05 ng/mL (<0.06)
[2017-08-03 14:27] LABS: CALCIUM 7.7 mg/dL (8.5-10.1); CREATININE 1.6 mg/dL (0.7-1.3); MAGNESIUM 1.7 mg/dL (1.8-2.4); POTASSIUM 4.7 mmol/L (3.5-5.1)
[2017-08-03 14:33] LABS: APTT 35.3 Seconds (24.5-32.8); FIBRINOGEN 382.3 mg/dL (210-360); INR 1.1; PROTIME 11.4 Seconds (9.3-11.4)
[2017-08-03 16:55] LABS: HEMOGLOBIN 6.9 gm/dL (14.0-18.0); RBC 2.23 mil/uL (4.50-6.00)
[2017-08-03 16:56] LABS: HEMATOCRIT 20.9 % (42.0-52.0); MCH 30.9 pg (26.0-34.0); MCV 93.7 fL (80.0-100.0); PLATELET COUNT 48 thou/uL (150-400); RDW 22.1 % (10.5-14.5)
[2017-08-03 17:02] LABS: WBC 1.4 thou/uL (4.0-11.0)
[2017-08-03 17:06] LABS: CALCIUM 7.9 mg/dL (8.5-10.1); CREATININE 1.6 mg/dL (0.7-1.3); MAGNESIUM 2.2 mg/dL (1.8-2.4); POTASSIUM 4.8 mmol/L (3.5-5.1)
[2017-08-03 17:28] LABS: ABSOLUTE NEUTROPHILS 1.2 thou/uL (1.4-8.2); ANISOCYTOSIS 3+; MACROCYTES 1+; METAMYELOCYTES 2 %; NUCLEATED RBCS 1 /100WBC; POLYCHROMASIA OCCASIONAL
[2017-08-03 21:48] LABS: CREATININE 1.5 mg/dL (0.7-1.3); POTASSIUM 4.8 mmol/L (3.5-5.1)
[2017-08-04] VITALS (42 sets, daily range): BP systolic 85–123; BP diastolic 55–99
[2017-08-04 05:37] LABS: HEMOGLOBIN 7.3 gm/dL (14.0-18.0); PLATELET COUNT 22 thou/uL (150-400)
[2017-08-04 05:39] LABS: HEMATOCRIT 21.6 % (42.0-52.0); MCH 31.4 pg (26.0-34.0); MCHC 33.8 g/dL (28.0-37.0); RBC 2.33 mil/uL (4.50-6.00); RDW 20.6 % (10.5-14.5)
[2017-08-04 05:44] LABS: WBC 0.8 thou/uL (4.0-11.0)
[2017-08-04 05:59] LABS: ALBUMIN 1.8 g/dL (3.4-5.0); CALCIUM 7.9 mg/dL (8.5-10.1); CREATININE 1.5 mg/dL (0.7-1.3); POTASSIUM 4.4 mmol/L (3.5-5.1); TOTAL BILIRUBIN 0.7 mg/dL (<0.1-1.0); TOTAL PROTEIN 5.1 g/dL (6.4-8.2)
[2017-08-04 08:52] LABS: % SATURATION 35 % (20-39); IRON 44 ug/dL (65-175); TIBC 127 ug/dL (250-450)
[2017-08-04 09:39] LABS: ABSOLUTE NEUTROPHILS 0.6 thou/uL (1.4-8.2)
[2017-08-04 09:40] LABS: ANISOCYTOSIS 2+
[2017-08-04 09:46] LABS: MACROCYTES 1+; MICROCYTES 1+
[2017-08-04 09:48] LABS: POLYCHROMASIA SLIGHT
[2017-08-04 09:54] LABS: FOLIC ACID 17.7 ng/mL (8.6-58.9); TSH 2.673 uIU/mL (0.358-3.740)
[2017-08-05] VITALS (23 sets, daily range): BP systolic 99–133; BP diastolic 62–93
[2017-08-05 05:52] LABS: CREATININE 1.6 mg/dL (0.7-1.3); POTASSIUM 4.2 mmol/L (3.5-5.1)
[2017-08-05 06:08] LABS: HEMATOCRIT 21.6 % (42.0-52.0); HEMOGLOBIN 7.3 gm/dL (14.0-18.0); MCH 31.4 pg (26.0-34.0); MCHC 33.9 g/dL (28.0-37.0); MCV 92.7 fL (80.0-100.0); PLATELET COUNT 21 thou/uL (150-400); RBC 2.33 mil/uL (4.50-6.00); RDW 21.5 % (10.5-14.5)
[2017-08-05 06:12] LABS: WBC 1.5 thou/uL (4.0-11.0)
[2017-08-05 07:14] LABS: ABSOLUTE NEUTROPHILS 1.2 thou/uL (1.4-8.2); ANISOCYTOSIS 2+; ATYPICAL LYMPHS 1 %; MACROCYTES 1+; MICROCYTES 1+
[2017-08-05 07:15] LABS: POLYCHROMASIA OCCASIONAL
[2017-08-05 16:40] LABS: CLARITY TURBID; COLOR RED; SOURCE THORACENTESIS; TOTAL VOLUME 56 mL
[2017-08-05 17:53] LABS: BF RBC 18069
[2017-08-05 17:54] LABS: BF MACROPHAGE 18; BF NEUTROPHILS 16; BF NUCLEATED CELLS 245
[2017-08-06] VITALS (21 sets, daily range): BP systolic 104–134; BP diastolic 61–109
[2017-08-06 05:35] LABS: HEMATOCRIT 20.8 % (42.0-52.0); MCH 31.2 pg (26.0-34.0); MCHC 33.6 g/dL (28.0-37.0); MCV 92.8 fL (80.0-100.0); RBC 2.24 mil/uL (4.50-6.00); RDW 21.3 % (10.5-14.5)
[2017-08-06 05:38] LABS: CALCIUM 7.8 mg/dL (8.5-10.1); CREATININE 1.5 mg/dL (0.7-1.3); POTASSIUM 3.8 mmol/L (3.5-5.1)
[2017-08-06 05:42] LABS: WBC 1.3 thou/uL (4.0-11.0)
[2017-08-06 15:10] LABS: BODY FLUID ALBUMIN 1.8 g/dL (()); BODY FLUID AMYLASE 8 U/L (()); BODY FLUID GLUCOSE 141 mg/dL (()); BODY FLUID LDH 331 IU/L (()); BODY FLUID PROTEIN 3.2 g/dL (())
[2017-08-07 00:08] LABS: ADENOVIRUS Negative (Negative); INFLUENZA A Negative (Negative); INFLUENZA B Negative (Negative); METAPNEUMOVIRUS Positive (Negative); PARAINFLUENZA 1 Negative (Negative); PARAINFLUENZA 2 Negative (Negative); PARAINFLUENZA 3 Negative (Negative); RHINOVIRUS Negative (Negative); RSV A Negative (Negative); RSV B Negative (Negative)
[2017-08-07 04:35] VITALS: BP 115/75
[2017-08-07 06:40] LABS: HEMATOCRIT 21.7 % (42.0-52.0); HEMOGLOBIN 7.2 gm/dL (14.0-18.0)
[2017-08-07 06:41] LABS: MCH 31.3 pg (26.0-34.0); MCHC 33.4 g/dL (28.0-37.0); MCV 93.6 fL (80.0-100.0); RBC 2.31 mil/uL (4.50-6.00); RDW 21.9 % (10.5-14.5)
[2017-08-07 06:44] LABS: CALCIUM 7.7 mg/dL (8.5-10.1); CREATININE 1.3 mg/dL (0.7-1.3); POTASSIUM 3.3 mmol/L (3.5-5.1)
[2017-08-07 06:48] LABS: WBC 1.4 thou/uL (4.0-11.0)
[2017-08-07 07:58] VITALS: BP 139/79
[2017-08-07 11:39] VITALS: BP 132/79
[2017-08-07 16:01] VITALS: BP 137/88
[2017-08-07 23:10] VITALS: BP 150/85
[2017-08-08] VITALS (10 sets, daily range): BP systolic 85–121; BP diastolic 49–72
[2017-08-08 05:17] LABS: HEMATOCRIT 23.4 % (42.0-52.0); MCH 31.8 pg (26.0-34.0); MCHC 34.1 g/dL (28.0-37.0); RBC 2.51 mil/uL (4.50-6.00); RDW 21.8 % (10.5-14.5)
[2017-08-08 05:25] LABS: CREATININE 1.7 mg/dL (0.7-1.3); POTASSIUM 3.3 mmol/L (3.5-5.1)
[2017-08-08 14:50] LABS: HCO3 20.8 mmol/L (22.0-26.0); PCO2 25.1 mmHg (35.0-45.0); pH 7.536 (7.360-7.450); sO2 91.2 % (92.0-98.0)
[2017-08-08 14:51] LABS: PO2 51.7 mmHg (80.0-100.0)
[2017-08-09 04:12] VITALS: BP 93/55
[2017-08-09 04:35] LABS: SOURCE THORACENTESIS
[2017-08-09 05:02] LABS: HEMATOCRIT 21.6 % (42.0-52.0); HEMOGLOBIN 7.2 gm/dL (14.0-18.0); MCH 31.4 pg (26.0-34.0); MCHC 33.5 g/dL (28.0-37.0); MCV 93.7 fL (80.0-100.0); RBC 2.31 mil/uL (4.50-6.00); RDW 21.9 % (10.5-14.5)
[2017-08-09 05:09] LABS: CALCIUM 7.9 mg/dL (8.5-10.1); CREATININE 1.8 mg/dL (0.7-1.3); POTASSIUM 3.3 mmol/L (3.5-5.1)
[2017-08-09 05:27] LABS: PLATELET COUNT 19 thou/uL (150-400); WBC 2.3 thou/uL (4.0-11.0)
[2017-08-09 08:05] VITALS: BP 98/61
[2017-08-09 11:35] VITALS: BP 101/64
[2017-08-09 12:04] LABS: METAMYELOCYTES 1 %; NUCLEATED RBCS 1 /100WBC
[2017-08-09 12:06] LABS: ANISOCYTOSIS 2+; HYPOCHROMASIA 1+; MACROCYTES 1+; MICROCYTES 1+
[2017-08-09 16:02] VITALS: BP 88/50
[2017-08-09 17:24] VITALS: BP 115/74
[2017-08-09 21:00] VITALS: BP 115/67
[2017-08-10] VITALS (7 sets, daily range): BP systolic 74–160; BP diastolic 46–82
[2017-08-10 05:46] LABS: HEMATOCRIT 22.3 % (42.0-52.0); HEMOGLOBIN 7.4 gm/dL (14.0-18.0); MCH 31.3 pg (26.0-34.0); MCV 94.8 fL (80.0-100.0); RBC 2.35 mil/uL (4.50-6.00); WBC 4.7 thou/uL (4.0-11.0)
[2017-08-10 08:20] LABS: CALCIUM 7.8 mg/dL (8.5-10.1)
[2017-08-10 08:24] LABS: POTASSIUM 2.7 mmol/L (3.5-5.1)
[2017-08-10 08:40] LABS: PROTIME 10.7 Seconds (9.3-11.4)
[2017-08-11] VITALS (30 sets, daily range): BP systolic 86–137; BP diastolic 50–95
[2017-08-11 03:10] LABS: PROTIME 10.4 Seconds (9.3-11.4)
[2017-08-11 08:30] LABS: WBC 4.1 thou/uL (4.0-11.0)
[2017-08-11 08:31] LABS: MCH 31.6 pg (26.0-34.0); MCHC 33.7 g/dL (28.0-37.0); MCV 93.7 fL (80.0-100.0)
[2017-08-11 08:43] LABS: HEMATOCRIT 17.8 % (42.0-52.0); PLATELET COUNT 24 thou/uL (150-400)
[2017-08-11 12:34] LABS: ABSOLUTE NEUTROPHILS 3.6 thou/uL (1.4-8.2); METAMYELOCYTES 4 %; NUCLEATED RBCS 1 /100WBC
[2017-08-11 12:37] LABS: ANISOCYTOSIS 3+; HYPOCHROMASIA 2+
[2017-08-11 12:38] LABS: MICROCYTES 2+
[2017-08-11 12:41] LABS: TOXIC GRANULATION 1+
[2017-08-11 21:23] LABS: MCH 31.2 pg (26.0-34.0); MCHC 34.8 g/dL (28.0-37.0)
[2017-08-11 21:24] LABS: HEMATOCRIT 23.8 % (42.0-52.0); MCV 89.6 fL (80.0-100.0); RBC 2.66 mil/uL (4.50-6.00); RDW 21.4 % (10.5-14.5); WBC 4.7 thou/uL (4.0-11.0)
[2017-08-11 21:25] LABS: HEMOGLOBIN 8.3 gm/dL (14.0-18.0)
[2017-08-11 21:38] LABS: CALCIUM 7.9 mg/dL (8.5-10.1); CREATININE 2.3 mg/dL (0.7-1.3)
[2017-08-11 21:44] LABS: POTASSIUM 2.5 mmol/L (3.5-5.1)
[2017-08-12] VITALS (76 sets, daily range): BP systolic 76–139; BP diastolic 35–88
[2017-08-12 06:27] LABS: HEMATOCRIT 22.5 % (42.0-52.0); RBC 2.51 mil/uL (4.50-6.00); WBC 3.1 thou/uL (4.0-11.0)
[2017-08-12 06:29] LABS: HEMOGLOBIN 7.6 gm/dL (14.0-18.0); MCH 30.3 pg (26.0-34.0); MCHC 33.8 g/dL (28.0-37.0); MCV 89.7 fL (80.0-100.0); PLATELET COUNT 36 thou/uL (150-400); RDW 21.6 % (10.5-14.5)
[2017-08-12 06:36] LABS: CALCIUM 7.8 mg/dL (8.5-10.1); CREATININE 2.4 mg/dL (0.7-1.3)
[2017-08-12 06:38] LABS: POTASSIUM 2.6 mmol/L (3.5-5.1)
[2017-08-12 08:06] LABS: ANISOCYTOSIS 2+
[2017-08-12 08:07] LABS: OVALOCYTES FEW
[2017-08-13] VITALS (68 sets, daily range): BP systolic 90–139; BP diastolic 53–94
[2017-08-13 04:58] LABS: HEMOGLOBIN 8.4 gm/dL (14.0-18.0); WBC 3.5 thou/uL (4.0-11.0)
[2017-08-13 05:00] LABS: HEMATOCRIT 25.3 % (42.0-52.0); MCH 30.5 pg (26.0-34.0); MCHC 33.3 g/dL (28.0-37.0); MCV 91.7 fL (80.0-100.0); RBC 2.76 mil/uL (4.50-6.00); RDW 22.1 % (10.5-14.5)
[2017-08-13 05:15] LABS: CALCIUM 7.7 mg/dL (8.5-10.1); CREATININE 2.3 mg/dL (0.7-1.3)
[2017-08-13 05:17] LABS: POTASSIUM 2.2 mmol/L (3.5-5.1)
[2017-08-14] VITALS (22 sets, daily range): BP systolic 69–131; BP diastolic 49–82
== END 2017-08-14 11:59 | DRG 871 ==
LOC: ER 06:27 → ICU 07:35 → EROBS 07:35 → ICU 09:32 → 3W 08-06 17:08 → ICU 08-11 14:07
PROVIDERS: Emergency Medicine; Family Medicine; Internal Medicine; Internal Medicine Hematology & Oncology; Internal Medicine Infectious Disease; Internal Medicine Pulmonary Disease
PROC: 30233R1 Transfusion of Nonautologous Platelets into Peripheral Vein, Percutaneous Approach (ICD-10-PCS; principal; 2017-08-03)
PROC: B244ZZZ Ultrasonography of Right Heart (ICD-10-PCS; principal; 2017-08-03)
PROC: 02H633Z Insertion of Infusion Device into Right Atrium, Percutaneous Approach (ICD-10-PCS; principal; 2017-08-03)
PROC: 30233N1 Transfusion of Nonautologous Red Blood Cells into Peripheral Vein, Percutaneous Approach (ICD-10-PCS; principal; 2017-08-03)
PROC: 0W993ZX Drainage of Right Pleural Cavity, Percutaneous Approach, Diagnostic (ICD-10-PCS; 2017-08-05)
DX: A41.9 Sepsis, unspecified organism (principal); J96.01 Acute respiratory failure with hypoxia; G92 Toxic encephalopathy; E43 Unspecified severe protein-calorie malnutrition; R65.21 Severe sepsis with septic shock; J15.0 Pneumonia due to Klebsiella pneumoniae; N17.9 Acute kidney failure, unspecified; D61.818 Other pancytopenia; C79.51 Secondary malignant neoplasm of bone; C78.7 Secondary malignant neoplasm of liver and intrahepatic bile duct; C77.2 Secondary and unspecified malignant neoplasm of intra-abdominal lymph nodes; J90 Pleural effusion, not elsewhere classified; Q60.0 Renal agenesis, unilateral; Z66 Do not resuscitate; Y95 Nosocomial condition; R53.81 Other malaise; C62.90 Malignant neoplasm of unspecified testis, unspecified whether descended or undescended; R41.0 Disorientation, unspecified; M10.9 Gout, unspecified; Z88.6 Allergy status to analgesic agent; Z68.25 Body mass index [BMI] 25.0-25.9, adult; Z90.5 Acquired absence of kidney; Z79.899 Other long term (current) drug therapy; Z80.9 Family history of malignant neoplasm, unspecified; Z87.891 Personal history of nicotine dependence
CPT/HCPCS: 10078; 10203; 10879